=== PATIENT | male | born 2000 | race American Indian/Alaskan Native ===

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

== ENCOUNTER 2020-07-10 14:00 | Emergency (ER) | payer OTHER ==
[~2020-07-10] VITALS: Ht 172.7 cm; Wt 65.8 kg
[~2020-07-10 14:00] MED LIST changes: +HYDROCODON-ACE1 EA11 PO; +KETOROLAC TROME10 MG PO; +SENNA LAX8.6 MG PO
== END 2020-07-10 14:30 | disposition home or self-care (01) ==
LOC: ED 14:00
DX: S93.402A Sprain of unspecified ligament of left ankle, initial encounter (principal); X50.9XXA Other and unspecified overexertion or strenuous movements or postures, initial encounter; Z87.891 Personal history of nicotine dependence; Z79.899 Other long term (current) drug therapy
CPT/HCPCS: 73610; 99283-25

== ENCOUNTER 2020-09-16 11:30 | Emergency (ER) | payer OTHER ==
[~2020-09-16] VITALS: Ht 172.7 cm; Wt 81.6 kg
== END 2020-09-16 12:52 | disposition home or self-care (01) ==
LOC: ED 11:30
DX: S61.212A Laceration without foreign body of right middle finger without damage to nail, initial encounter (principal); W26.8XXA Contact with other sharp object(s), not elsewhere classified, initial encounter; F17.200 Nicotine dependence, unspecified, uncomplicated
CPT/HCPCS: 99282

== ENCOUNTER 2021-04-19 05:46 | Emergency (ER) | payer OTHER ==
[~2021-04-19] VITALS: Ht 172.7 cm; Wt 63.0 kg
== END 2021-04-19 06:19 | disposition home or self-care (01) ==
LOC: ED 05:46
DX: R07.89 Other chest pain (principal); F17.200 Nicotine dependence, unspecified, uncomplicated; V29.9XXA Motorcycle rider (driver) (passenger) injured in unspecified traffic accident, initial encounter
CPT/HCPCS: 99283

== ENCOUNTER 2021-05-15 19:24 | Emergency (ER) | payer OTHER ==
[~2021-05-15] VITALS: Ht 172.7 cm; Wt 62.6 kg
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
== END 2021-05-15 23:59 | disposition home or self-care (01) ==
LOC: ED 19:24
DX: S61.210A Laceration without foreign body of right index finger without damage to nail, initial encounter (principal); W45.8XXA Other foreign body or object entering through skin, initial encounter; F17.200 Nicotine dependence, unspecified, uncomplicated
CPT/HCPCS: 12001; 99282-25

== ENCOUNTER 2022-02-25 13:11 | Emergency (ER) | payer OTHER ==
[~2022-02-25] VITALS: Ht 172.7 cm; Wt 66.2 kg
[2022-02-25] MEDS ORDERED: AMOXICILLIN500 MG PO (17:52)
== END 2022-02-25 18:03 | disposition home or self-care (01) ==
LOC: ED 13:11
DX: H66.91 Otitis media, unspecified, right ear (principal); F17.200 Nicotine dependence, unspecified, uncomplicated
CPT/HCPCS: 99282

== ENCOUNTER 2023-07-29 12:42 | Emergency (ER) | payer OTHER ==
[~2023-07-29] VITALS: Ht 172.7 cm; Wt 66.2 kg
[~2023-07-29 12:42] MED LIST changes: +AMOXICILLIN500 MG PO
[2023-07-29] MEDS ORDERED: CEPHALEXIN500 M1 PO (16:50)
[2023-07-29 17:05] VITALS: BP 113/67
== END 2023-07-29 17:05 | disposition home or self-care (01) ==
LOC: ED 12:42
DX: S66.322A Laceration of extensor muscle, fascia and tendon of right middle finger at wrist and hand level, initial encounter (principal); F17.200 Nicotine dependence, unspecified, uncomplicated; W25.XXXA Contact with sharp glass, initial encounter

== ENCOUNTER 2025-03-12 18:22 | Emergency (ER) | payer OTHER ==
[~2025-03-12] VITALS: Ht 172.7 cm; Wt 62.4 kg
[~2025-03-12 18:22] MED LIST changes: +CEPHALEXIN500 M1 PO
[2025-03-12] MEDS ORDERED: DOXYCYCLINE HYCLATE 100 MG HOME.PACK PO ONE (19:15)
[2025-03-12 19:27] VITALS: BP 121/74
== END 2025-03-12 19:27 | disposition home or self-care (01) ==
LOC: ED 18:22
DX: L03.114 Cellulitis of left upper limb (principal); L03.113 Cellulitis of right upper limb; F17.200 Nicotine dependence, unspecified, uncomplicated
CPT/HCPCS: 99282; A9270